=== PATIENT | female | born 1975 ===

== ENCOUNTER 2017-06-22 11:10 | Inpatient (IN) | payer OTHER ==
[2017-06-22] MEDS ORDERED: CYTOTEC VG SCH (12:00)
[2017-06-22 12:21] LABS: Hematocrit 33.7 % (30.3-42.9); Hemoglobin 11.8 gm/dl (10.1-14.3); Mean Corpuscular HGB Conc 35 % (30-34); Mean Corpuscular Hemoglobin 30 pg (28-32); Mean Corpuscular Volume 86 fl (79-97); Platelet Count 336 K/mm3 (140-440); Red Blood Count 3.94 M/mm3 (3.65-5.03); Red Cell Distribution Width 13.6 % (13.2-15.2); White Blood Count 8.8 K/mm3 (4.5-11.0)
[2017-06-22] MEDS ORDERED: MINERAL OIL PO PRN (13:42)
[2017-06-22] MEDS ORDERED: ePHEDrine SULFATE IV PRN (13:42)
[2017-06-22] MEDS ORDERED: ZOFRAN IV PRN (13:42)
[2017-06-22] MEDS ORDERED: CYTOTEC VG PRN (13:48)
--- NOTE | 2017-06-22 13:57 | History and Physical Report ---
History of Present Illness Date of examination: 06/22/17 Date of admission: 06/22/17 11:10 Chief complaint: Presents for induction of labor due to IUFD History of present illness: Late entry to care at 21 5/7 Weeks at [facility]. course complicated by abnormal quad screen (declined Amnio and NIPS testing). No FHTs on return OB visit today. Past History Past Medical History: no pertinent history Past Surgical History: no surgical history Family/Genetic History: diabetes (Aunt), hypertension (Father) Social history: no significant social history, single - Obstetrical History Expected Date of Delivery: 09/09/17 Actual Gestation: 28 Week(s) 5 Day(s) : 9 Para: 8 Hx # Term Pregnancies: 8 Number of Living Children: 8 Medications and Allergies Allergies Allergy/AdvReac Type Severity Reaction Status Date / Time No Known Allergies Allergy Verified 01/06/15 14:19 Home Medications Medication Instructions Recorded Confirmed Last Taken Type Vits96/Iron Fum/Folic 1 each PO QDAY 01/06/15 06/22/17 2 Days Ago History [ Tablet] ~06/20/17 Active Meds: Active Medications Butorphanol Tartrate (Stadol) 2 mg IV Q2H PRN PRN Reason: Labor Pain Ephedrine Sulfate (Ephedrine Sulfate) 10 mg IV Q2M PRN PRN Reason: Hypotension Lactated Ringer's (Lactated Ringers) 1,000 mls @ 125 mls/hr IV DIRECT VASILIY Oxytocin/Sodium Chloride (Pitocin/Ns 20 Unit/1000ml Drip) 20 units in 1,000 mls @ 125 mls/hr IV DIRECT VASILIY Oxytocin/Sodium Chloride (Pitocin/Ns 30 Unit/500ml) 30 units in 500 mls @ 1 mls /hr IV TITR VASILIY; 1 MILLIUNITS/MIN PRN Reason: Protocol Mineral Oil (Mineral Oil) 30 ml PO QHS PRN PRN Reason: Constipation Misoprostol (Cytotec) 100 mcg VG Q4H PRN PRN Reason: Labor Induction Ondansetron HCl (Zofran) 4 mg IV Q8H PRN PRN Reason: Nausea And Vomiting Review of Systems All systems: negative - Vital Signs Vital signs: Vital Signs Pulse BP 120 H 115/71 06/22/17 11:43 06/22/17 11:43 Temp Pulse Resp BP Pulse Ox 98.2 F 115 H 14 123/72 97 06/22/17 12:13 06/22/17 13:43 06/22/17 12:13 06/22/17 13:43 06/22/17 13:16 - Physical Exam Breasts: Positive: normal Cardiovascular: Regular rate Lungs: Positive: Clear to auscultation, Normal air movement Abdomen: Positive: normal appearance, soft, normal bowel sounds Genitourinary (Female): Positive: normal external genitalia, normal perenium Vagina: Positive: normal moisture Uterus: Positive: enlarged Anus/Rectum: Positive: normal perianal skin - Obstetrical Uterine Contraction Monitor Mode: External Cervical Dilatation: 0 Cervical Effacement Percentage: 0 Uterine Contraction Pattern: Absent Uterine Tone Measurement Phase: Resting Results Result Diagrams: 06/22/17 11:50 Abnormal lab results 06/22/17 Range/Units 11:50 MCHC 35 H (30-34) % All other labs normal. Assessment and Plan A: IUFD @ 28 5/7 Weeks Multiple Suspected Congential Anomalies AMA P: Admit to L&D per routine orders Confirmation Ultrasound Cytotec 100mg vaginally q 4 hours
[2017-06-22] MEDS ORDERED: PITOCin/NS 30 UNIT/500ML 30 UNITS/500 ML BAG IV SCH (14:00)
[2017-06-22] MEDS ORDERED: PITOCin/NS 20 UNIT/1000ML DRIP 20 UNITS/1,000 ML BAG IV SCH (14:00)
--- NOTE | 2017-06-22 14:25 | Ultrasound Report ---
FINAL REPORT PROCEDURE: US OB LIMITED TECHNIQUE: Ultrasound of the gravid pelvis was performed. HISTORY: confirm no FHT COMPARISON: None FINDINGS: There is an intrauterine gestation in cephalic presentation. No heartbeat was identified. IMPRESSION: No identified heartbeat. demise of concern.
[2017-06-22 14:59] LABS: Hematocrit 34.9 % (30.3-42.9); Hemoglobin 11.7 gm/dl (10.1-14.3)
[2017-06-22] MEDS: STADOL IV PRN ×3 (18:55→23:54)
[2017-06-22] MEDS: LACTATED RINGERS 1,000 ML IV SCH (18:56)
[2017-06-22] MEDS: CYTOTEC VG PRN (22:47)
[2017-06-23] MEDS: STADOL IV PRN ×2 (01:58→04:51)
[2017-06-23] MEDS: LACTATED RINGERS 1,000 ML IV SCH (02:02)
[2017-06-23] MEDS: CYTOTEC VG PRN (04:21)
--- NOTE | 2017-06-23 05:14 | Procedure Note ---
OB Delivery Note - Delivery Date of Delivery: 06/23/17 Surgeon: GRABIEL MOYER Estimated blood loss: 100cc - Vaginal Delivery presentation: vertex Delivery position: OA Intrapartum events: labor-<37 weeks Delivery induction: misoprostol Delivery augmentation: rupture of membranes Delivery monitor: external uterine Route of delivery: Delivery placenta: spontaneous Delivery cord: 3 umbilical vessels Episiotomy: none Delivery laceration: none Anesthesia: intravenous - Infant A at 1 minute: 0 at 5 minutes: 0 Gender: Male (1105gms)
[2017-06-23] MEDS ORDERED: TUCKS PAD TP PRN (05:17)
[2017-06-23] MEDS ORDERED: TYLENOL PO PRN (05:17)
[2017-06-23] MEDS ORDERED: PHENERGAN PO PRN (05:17)
[2017-06-23] MEDS ORDERED: LANSINOH TP PRN (05:17)
[2017-06-23] MEDS ORDERED: BENADRYL PO PRN (05:17)
[2017-06-23] MEDS ORDERED: NORCO 5/325 PO PRN (05:17)
[2017-06-23] MEDS ORDERED: ZOFRAN IV PRN (05:17)
[2017-06-23] MEDS ORDERED: MILK OF MAGNESIA PO PRN (05:17)
[2017-06-23] MEDS ORDERED: DULCOLAX PR PRN (05:17)
[2017-06-23] MEDS ORDERED: PHENERGAN PR PRN (05:17)
[2017-06-23] MEDS ORDERED: PITOCin/NS 20 UNIT/1000ML DRIP 20 UNITS/1,000 ML BAG IV SCH (06:00)
[2017-06-23] MEDS ORDERED: SODIUM CHLORIDE FLUSH SYRINGE 10 ML IV NR (06:00)
[2017-06-23] MEDS: FEOSOL PO SCH ×2 (13:26→21:24)
[2017-06-23] MEDS: MOTRIN PO SCH (13:26)
[2017-06-23] MEDS: COLACE PO SCH ×2 (13:26→21:24)
[2017-06-23] MEDS: PRENATAL VITAMIN PO SCH (13:27)
[2017-06-23 17:21] LABS: Hematocrit 35.2 % (30.3-42.9)
[2017-06-24] MEDS: MOTRIN PO SCH (00:30)
[2017-06-24] MEDS ORDERED: BOOSTRIX IM ONE (06:00)
[2017-06-24] MEDS ORDERED: M-M-R II VACCINE SUB-Q ONE (06:00)
--- NOTE | 2017-06-24 08:39 | Progress Note ---
Assessment and Plan A: day 1 S/P after IUFD at 28 5/7 weeks gestation. P: Discharge patient home today. Offered patient grief counseling but patient declined. discharge instructions and warning signs discussed with patient in detail. Advised pt. to avoid driving, avoid heavy housework, avoid lifting, avoid intercourse. Advised patient to follow up at [facility] in 1 month. Discussed with patient signs and symptoms of depression and advised her to return promptly if she has any of these. Pt. voiced understanding of above instructions. Subjective - Subjective Date of service: 06/24/17 Principal diagnosis: day 1 S/P after IUFD Interval history: Patient wants to go home today. Patient is day 1 S/P after IUFD at 28 5/7 weeks gestation. Patient reports she is voiding without difficulty and ambulating well. She is tolerating a regular diet without nausea or vomiting. Patient reports small amount of lochia and no large clots. Patient denies headache, chest pain, cough, shortness of breath, abdominal pain, leg pain, heavy vaginal bleeding, or symptoms of depression. She is going through grief process; she declines grief counseling. Patient reports: appetite normal, voiding normally, flatus, ambulating normally , no nauseated [place]: Objective - Vital Signs Latest vital signs: Vital Signs Temp Pulse Resp BP Pulse Ox 06/24/17 05:00 98.4 F 90 20 107/69 06/24/17 00:09 98.4 F 87 20 98/63 06/23/17 20:18 98.2 F 82 20 96/59 06/23/17 16:15 98.6 F 69 20 99/54 06/23/17 11:30 98 F 72 20 96/61 06/23/17 08:50 98.2 F 86 16 99/62 96 Intake and Output 06/23/17 06/24/17 06/24/17 23:59 07:59 15:59 Intake Total 120 240 Output Total 300 Balance -180 240 Intake: Oral 120 Intake, Free Water 240 Output: Urine 300 Void 300 Other: Total, Intake Amount 120 Total, Output Amount 300 # Voids Void 1 1 - Exam Cardiovascular: Present: Regular rate, Normal S1, Normal S2 Lungs: Present: Clear to auscultation Abdomen: Present: normal appearance, soft. Absent: distention, tenderness, guarding, rigidity Uterus: Present: normal, firm, fundal height below umbilicus. Absent: bogginess , tenderness Extremities: Present: normal. Absent: tenderness, edema Incision: Present: normal, dry, intact, dressed
--- NOTE | 2017-06-24 09:20 | Discharge Summary ---
Providers - Providers Date of Admission: 06/22/17 11:10 Date of discharge: 06/24/17 Attending physician: SANJIV CARLSON MD Case management Primary care physician: SANJIV CARLSON MD Hospitalization Reason for admission: IUFD Delivery: Episiotomy: none Laceration: none Other procedures: none Discharge diagnosis: intrapartum demise Pertinent studies: Labs, ultrasound Hospital course: IUFD followed by . Normal course. Condition at discharge: Good Disposition: DC-01 TO HOME OR SELFCARE - Discharge Diagnoses (1) IUFD at 20 weeks or more of gestation Status: Acute (2) (spontaneous vaginal delivery) Status: Acute Plan - Provider Discharge Summary Activity: routine, no sex for 6 weeks, no heavy lifting 4 weeks, no strenuous exercise Diet: routine Instructions: routine Additional instructions: Call your doctor immediately for: * Fever > 100.5 * Heavy vaginal bleeding ( >1 pad per hour) * Severe persistent headache * Shortness of breath * Reddened, hot, painful area to leg or breast - Follow up plan Follow up: SANJIV CARLSON MD [Primary Care Provider] - 07/21/17
[2017-06-24] MEDS: FEOSOL PO SCH (09:37)
[2017-06-24] MEDS: PRENATAL VITAMIN PO SCH (09:37)
[2017-06-24 09:43] VITALS: BP 116/78
== END 2017-06-24 10:00 | disposition home or self-care (01) | DRG 775 ==
LOC: LD 11:10 → OB 06-23 09:14
PROVIDERS: ADMIT Obstetrics & Gynecology; ATTEND Obstetrics & Gynecology
PROC: 10E0XZZ Delivery of Products of Conception, External Approach (ICD-10-PCS; principal; 2017-06-23)
PROC: 3E0234Z Introduction of Serum, Toxoid and Vaccine into Muscle, Percutaneous Approach (ICD-10-PCS; 2017-06-24)
DX: O60.14X0 Preterm labor third trimester with preterm delivery third trimester, not applicable or unspecified (principal); Z37.1 Single stillbirth; Z3A.28 28 weeks gestation of pregnancy; Z83.3 Family history of diabetes mellitus; Z82.49 Family history of ischemic heart disease and other diseases of the circulatory system; Z23 Encounter for immunization
CPT/HCPCS: 36415; 76815; 85014; 85018; 85027; 86850; 86900; 86901; 88305; 88307; 90707; J0595; J2590; J7120